=== PATIENT | female | born 1945 | race Caucasian/White ===

== ENCOUNTER 2018-07-12 10:24 | Emergency (ER) | payer MEDICARE, OTHER ==
[2018-07-12] MEDS: METHYLPREDNISOLONE 125 MG INJ IV (11:11)
[2018-07-12] MEDS: LEVALBUTEROL (NEB) 1.25 MG/0.5 ML AMP INH (12:25)
[2018-07-12 12:32] LABS: ADD MAN DIFF? NO
[2018-07-12 12:33] LABS: BASOPHILS % 0.5 % (0.0-2.0); EOSINOPHILS # 0.1 10^3/ul (0.0-0.5); EOSINOPHILS % 0.7 % (0.0-7.0); HEMATOCRIT 47.5 % (37.0-47.0); HEMOGLOBIN 15.6 g/dl (12.0-16.0); IMMATURE GRANS #M 0.02 10^3/ul; IMMATURE GRANS % (M) 0.3 %; LYMPHOCYTES # 1.8 10^3/ul (0.8-2.9); LYMPHOCYTES % 23.5 % (15.0-51.0); MEAN CORPUSCULAR HEMOGLOBIN 29.5 pg (29.0-33.0); MEAN CORPUSCULAR HGB CONC 32.8 g/dl (32.0-37.0); MEAN PLATELET VOLUME 10.3 fl (7.4-10.4); MONOCYTE # 0.5 10^3/ul (0.3-0.9); MONOCYTES % 6.4 % (0.0-11.0); NEUTROPHIL # 5.2 10^3/ul (1.6-7.5); NEUTROPHILS % 68.6 % (39.0-77.0); PLATELET COUNT 261 10^3/UL (140-415); RED BLOOD COUNT 5.28 10^6/ul (4.20-5.40); RED CELL DISTRIBUTION WIDTH 13.6 % (11.5-14.5)
[2018-07-12 12:33] LABS: WHITE BLOOD COUNT 7.5 10^3/ul (4.8-10.8)
[2018-07-12 13:01] LABS: ANION GAP 12 (8-16); BLOOD UREA NITROGEN 15 mg/dl (7-20); CALCIUM 10.5 mg/dl (8.4-10.2); CARBON DIOXIDE 22 mmol/L (21-31); CHLORIDE 109 mmol/L (97-110); CREATININE 0.61 mg/dl (0.44-1.00); GLUCOSE 88 mg/dl (70-220); POTASSIUM 4.1 mmol/L (3.5-5.1); SODIUM 139 mmol/L (135-144)
[2018-07-12 13:13] LABS: TROPONIN-I < 0.010 ng/ml (0.000-0.120)
== END 2018-07-12 14:20 | disposition home or self-care (01) ==
LOC: E/R 10:24
DX: I48.91 Unspecified atrial fibrillation (principal); J40 Bronchitis, not specified as acute or chronic; F17.210 Nicotine dependence, cigarettes, uncomplicated; R40.2142 Coma scale, eyes open, spontaneous, at arrival to emergency department; R40.2362 Coma scale, best motor response, obeys commands, at arrival to emergency department; R40.2252 Coma scale, best verbal response, oriented, at arrival to emergency department; Z79.82 Long term (current) use of aspirin
CPT/HCPCS: 36415; 71045; 80048; 84484; 85025; 93005; 94644; 99285-25

== ENCOUNTER 2018-07-29 16:22 | Emergency (ER) | payer MEDICARE, OTHER ==
[2018-07-29] MEDS: ONDANSETRON 4 MG INJ IV (16:50)
[2018-07-29] MEDS: LACTATED RINGER'S 1,000 ML IV (16:59)
[2018-07-29 17:01] LABS: ADD MAN DIFF? NO
[2018-07-29 17:06] LABS: WHITE BLOOD COUNT 7.7 10^3/ul (4.8-10.8)
[2018-07-29 17:06] LABS: BASOPHILS % 0.5 % (0.0-2.0); EOSINOPHILS # 0.1 10^3/ul (0.0-0.5); EOSINOPHILS % 1.6 % (0.0-7.0); HEMATOCRIT 45.6 % (37.0-47.0); HEMOGLOBIN 15.2 g/dl (12.0-16.0); LYMPHOCYTES # 2.2 10^3/ul (0.8-2.9); LYMPHOCYTES % 28.5 % (15.0-51.0); MEAN CORPUSCULAR HGB CONC 33.3 g/dl (32.0-37.0); MEAN CORPUSCULAR VOLUME 89.9 fl (82.0-101.0); MEAN PLATELET VOLUME 9.8 fl (7.4-10.4); MONOCYTE # 0.4 10^3/ul (0.3-0.9); MONOCYTES % 5.6 % (0.0-11.0); NEUTROPHIL # 4.9 10^3/ul (1.6-7.5); NEUTROPHILS % 63.5 % (39.0-77.0); PLATELET COUNT 322 10^3/UL (140-415); RED BLOOD COUNT 5.07 10^6/ul (4.20-5.40); RED CELL DISTRIBUTION WIDTH 13.1 % (11.5-14.5)
[2018-07-29 17:10] LABS: ADD UMIC YES; UR ASCORBIC ACID 20 mg/dL (NEGATIVE); UR BILIRUBIN (Dip) NEGATIVE (NEGATIVE); UR BLOOD (Dip) 1+ mg/dL (NEGATIVE); UR CLARITY CLEAR (CLEAR); UR COLOR YELLOW (YELLOW); UR GLUCOSE (Dip) NEGATIVE (NEGATIVE); UR KETONES (Dip) NEGATIVE (NEGATIVE); UR LEUKOCYTE ESTERASE (Dip) NEGATIVE Leu/ul (NEGATIVE); UR NITRITE (Dip) NEGATIVE (NEGATIVE); UR RBC 2 /HPF (0-5); UR SPECIFIC GRAVITY (Dip) 1.012 (1.003-1.030); UR SQUAMOUS EPITHELIAL CELL FEW /HPF (FEW); UR TOTAL PROTEIN (Dip) NEGATIVE (NEGATIVE); UR UROBILINOGEN (Dip) NEGATIVE (NEGATIVE); UR WBC 1 /HPF (0-5)
[2018-07-29 17:35] LABS: ALANINE AMINOTRANSFERASE 20 IU/L (13-69); ALBUMIN 3.9 g/dl (3.3-4.9); ALBUMIN/GLOBULIN RATIO 1.21; ALKALINE PHOSPHATASE 123 IU/L (42-121); ANION GAP 10 (8-16); ASPARTATE AMINO TRANSFERASE 22 IU/L (15-46); BILIRUBIN,INDIRECT 0.1 mg/dl (0-1.1); BILIRUBIN,TOTAL 0.1 mg/dl (0.2-1.3); BLOOD UREA NITROGEN 21 mg/dl (7-20); CALCIUM 10.3 mg/dl (8.4-10.2); CARBON DIOXIDE 23 mmol/L (21-31); CHLORIDE 110 mmol/L (97-110); CREATININE 0.69 mg/dl (0.44-1.00); GLUCOSE 102 mg/dl (70-220); POTASSIUM 4.1 mmol/L (3.5-5.1); SODIUM 139 mmol/L (135-144); TOTAL PROTEIN 7.1 g/dl (6.1-8.1)
[2018-07-29 17:46] LABS: TROPONIN-I < 0.012 ng/ml (0.000-0.120)
== END 2018-07-29 19:30 | disposition home or self-care (01) ==
LOC: E/R 16:22
DX: R53.1 Weakness (principal); F17.210 Nicotine dependence, cigarettes, uncomplicated; Z79.82 Long term (current) use of aspirin
CPT/HCPCS: 36415; 71045; 80053; 81001; 84484; 85025; 93005; 96374; 99285-25

== ENCOUNTER 2018-08-19 21:15 | Inpatient (IN) | payer MEDICARE, OTHER ==
[2018-08-19 22:03] LABS: ADD MAN DIFF? NO
[2018-08-19 22:05] LABS: WHITE BLOOD COUNT 8.7 10^3/ul (4.8-10.8)
[2018-08-19 22:05] LABS: BASOPHILS % 0.3 % (0.0-2.0); EOSINOPHILS # 0.2 10^3/ul (0.0-0.5); EOSINOPHILS % 1.8 % (0.0-7.0); HEMATOCRIT 45.6 % (37.0-47.0); LYMPHOCYTES # 2.1 10^3/ul (0.8-2.9); LYMPHOCYTES % 24.6 % (15.0-51.0); MEAN CORPUSCULAR HEMOGLOBIN 29.5 pg (29.0-33.0); MEAN CORPUSCULAR HGB CONC 32.9 g/dl (32.0-37.0); MEAN CORPUSCULAR VOLUME 89.6 fl (82.0-101.0); MEAN PLATELET VOLUME 10.1 fl (7.4-10.4); MONOCYTE # 0.5 10^3/ul (0.3-0.9); MONOCYTES % 5.3 % (0.0-11.0); NEUTROPHIL # 5.9 10^3/ul (1.6-7.5); NEUTROPHILS % 67.8 % (39.0-77.0); PLATELET COUNT 272 10^3/UL (140-415); RED BLOOD COUNT 5.09 10^6/ul (4.20-5.40); RED CELL DISTRIBUTION WIDTH 13.1 % (11.5-14.5)
[2018-08-19] MEDS: SOD CHLORIDE 0.9% 500 ML IV (22:11)
[2018-08-19] MEDS: ASPIRIN 325 MG TAB PO (22:13)
[2018-08-19] MEDS: DILTIAZEM 25 MG INJ IV (22:13)
[2018-08-19 22:24] LABS: INR 0.84; PROTIME 11.6 Sec (11.9-14.9); PT RATIO 0.9
[2018-08-19 22:25] LABS: PARTIAL THROMBOPLASTIN TIME 28.6 Sec (25.0-35.0)
[2018-08-19 22:29] LABS: ANION GAP 10 (8-16); BLOOD UREA NITROGEN 20 mg/dl (7-20); CALCIUM 10.3 mg/dl (8.4-10.2); CARBON DIOXIDE 24 mmol/L (21-31); CHLORIDE 111 mmol/L (97-110); CREATININE 0.63 mg/dl (0.44-1.00); GLUCOSE 167 mg/dl (70-220); POTASSIUM 3.5 mmol/L (3.5-5.1); SODIUM 141 mmol/L (135-144)
[2018-08-19 22:41] LABS: B-TYPE NATRIURETIC PEPTIDE 256 PG/ML (0-125); TROPONIN-I < 0.012 ng/ml (0.000-0.120)
[2018-08-20] MEDS ORDERED: NITROGLYCERIN (SL) 0.4 MG TAB SL
[2018-08-20] MEDS ORDERED: ONDANSETRON 4 MG INJ IV
[2018-08-20] MEDS ORDERED: DOCUSATE SODIUM 100 MG CAP PO
[2018-08-20] MEDS ORDERED: ACETAMINOPHEN 325 MG TAB PO
[2018-08-20] MEDS ORDERED: BISACODYL (EC) 5 MG TAB PO
[2018-08-20] MEDS ORDERED: NACL 0.9% 3 ML SYG IV
[2018-08-20 03:49] LABS: ADD MAN DIFF? NO
[2018-08-20 04:04] LABS: BASOPHILS % 0.5 % (0.0-2.0); EOSINOPHILS # 0.1 10^3/ul (0.0-0.5); EOSINOPHILS % 1.6 % (0.0-7.0); HEMATOCRIT 42.1 % (37.0-47.0); HEMOGLOBIN 13.7 g/dl (12.0-16.0); LYMPHOCYTES # 2.1 10^3/ul (0.8-2.9); LYMPHOCYTES % 27.1 % (15.0-51.0); MEAN CORPUSCULAR HEMOGLOBIN 29.5 pg (29.0-33.0); MEAN CORPUSCULAR HGB CONC 32.5 g/dl (32.0-37.0); MEAN CORPUSCULAR VOLUME 90.5 fl (82.0-101.0); MEAN PLATELET VOLUME 10.3 fl (7.4-10.4); MONOCYTE # 0.4 10^3/ul (0.3-0.9); MONOCYTES % 5.4 % (0.0-11.0); NEUTROPHIL # 5.1 10^3/ul (1.6-7.5); NEUTROPHILS % 65.1 % (39.0-77.0); PLATELET COUNT 249 10^3/UL (140-415); RED BLOOD COUNT 4.65 10^6/ul (4.20-5.40); RED CELL DISTRIBUTION WIDTH 13.3 % (11.5-14.5)
[2018-08-20 04:04] LABS: WHITE BLOOD COUNT 7.9 10^3/ul (4.8-10.8)
[2018-08-20 04:09] LABS: ALANINE AMINOTRANSFERASE 20 IU/L (13-69); ALBUMIN 2.9 g/dl (3.3-4.9); ALBUMIN/GLOBULIN RATIO 1.16; ALKALINE PHOSPHATASE 98 IU/L (42-121); ANION GAP 6 (8-16); ASPARTATE AMINO TRANSFERASE 13 IU/L (15-46); BILIRUBIN,INDIRECT 0.2 mg/dl (0-1.1); BILIRUBIN,TOTAL 0.2 mg/dl (0.2-1.3); BLOOD UREA NITROGEN 17 mg/dl (7-20); CALCIUM 9.6 mg/dl (8.4-10.2); CARBON DIOXIDE 24 mmol/L (21-31); CHLORIDE 116 mmol/L (97-110); CHOL/HDL RATIO 2.9 RATIO; CHOLESTEROL 181 mg/dl (100-200); CREATINE KINASE 27 IU/L (23-200); CREATININE 0.63 mg/dl (0.44-1.00); GLUCOSE 163 mg/dl (70-220); HDL CHOLESTEROL 62 mg/dl (33-92); LDL CHOLESTEROL,CALCULATED 111 mg/dl; MAGNESIUM 1.8 mg/dl (1.7-2.5); POTASSIUM 3.4 mmol/L (3.5-5.1); SODIUM 143 mmol/L (135-144); TOTAL PROTEIN 5.4 g/dl (6.1-8.1); TRIGLYCERIDES 42 mg/dl (0-149)
[2018-08-20 04:16] LABS: HEMOGLOBIN A1C 6.2 % (0-5.9)
[2018-08-20 04:21] LABS: CK INDEX 2.4; CK-MB 0.65 ng/ml (0.0-2.4); TROPONIN-I 0.013 ng/ml (0.000-0.120)
[2018-08-20] MEDS: MAGNESIUM SULFATE 2 GM/50 ML 50 ML IVPB (04:40)
[2018-08-20] MEDS: POTASSIUM CHLORIDE (SR) 20 MEQ TAB PO (04:40)
[2018-08-20] MEDS ORDERED: FLECAINIDE 50 MG TAB PO (05:00)
[2018-08-20] MEDS: ASPIRIN (EC) 81 MG TAB PO (08:13)
[2018-08-20] MEDS: FLECAINIDE 50 MG TAB PO ×2 (08:20→21:00)
[2018-08-20] MEDS ORDERED: DILTIAZEM (CD) 240 MG CAP PO (09:00)
[2018-08-20 11:43] LABS: CREATINE KINASE 23 IU/L (23-200)
[2018-08-20 11:54] LABS: CK-MB 0.45 ng/ml (0.0-2.4); TROPONIN-I < 0.012 ng/ml (0.000-0.120)
[2018-08-21] MEDS: FLECAINIDE 50 MG TAB PO ×2 (09:00→21:00)
[2018-08-21] MEDS: ASPIRIN (EC) 81 MG TAB PO (09:14)
[2018-08-21 09:47] LABS: INR 0.86; PROTIME 11.8 Sec (11.9-14.9); PT RATIO 0.9
[2018-08-21 10:32] LABS: TROPONIN-I < 0.012 ng/ml (0.000-0.120)
[2018-08-21 10:36] LABS: ANION GAP 13 (8-16); BLOOD UREA NITROGEN 18 mg/dl (7-20); CALCIUM 10.4 mg/dl (8.4-10.2); CARBON DIOXIDE 23 mmol/L (21-31); CHLORIDE 110 mmol/L (97-110); CREATININE 0.55 mg/dl (0.44-1.00); GLUCOSE 92 mg/dl (70-220); MAGNESIUM 2.1 mg/dl (1.7-2.5); POTASSIUM 4.8 mmol/L (3.5-5.1); SODIUM 141 mmol/L (135-144)
[2018-08-21 15:08] LABS: ADD MAN DIFF? NO
[2018-08-21 15:10] LABS: BASOPHILS % 0.5 % (0.0-2.0); EOSINOPHILS # 0.1 10^3/ul (0.0-0.5); EOSINOPHILS % 1.9 % (0.0-7.0); HEMATOCRIT 48.9 % (37.0-47.0); HEMOGLOBIN 16.2 g/dl (12.0-16.0); LYMPHOCYTES # 1.9 10^3/ul (0.8-2.9); LYMPHOCYTES % 31.6 % (15.0-51.0); MEAN CORPUSCULAR HEMOGLOBIN 29.8 pg (29.0-33.0); MEAN CORPUSCULAR HGB CONC 33.1 g/dl (32.0-37.0); MEAN CORPUSCULAR VOLUME 89.9 fl (82.0-101.0); MEAN PLATELET VOLUME 10.6 fl (7.4-10.4); MONOCYTE # 0.4 10^3/ul (0.3-0.9); MONOCYTES % 6.3 % (0.0-11.0); NEUTROPHIL # 3.5 10^3/ul (1.6-7.5); NEUTROPHILS % 59.4 % (39.0-77.0); PLATELET COUNT 248 10^3/UL (140-415); RED BLOOD COUNT 5.44 10^6/ul (4.20-5.40); RED CELL DISTRIBUTION WIDTH 13.2 % (11.5-14.5)
[2018-08-21 15:10] LABS: WHITE BLOOD COUNT 5.9 10^3/ul (4.8-10.8)
[2018-08-22 07:32] LABS: ANION GAP 10 (8-16); BLOOD UREA NITROGEN 21 mg/dl (7-20); CALCIUM 10.3 mg/dl (8.4-10.2); CARBON DIOXIDE 27 mmol/L (21-31); CHLORIDE 108 mmol/L (97-110); CREATININE 0.62 mg/dl (0.44-1.00); GLUCOSE 110 mg/dl (70-220); MAGNESIUM 2.1 mg/dl (1.7-2.5); PHOSPHORUS 3.8 mg/dl (2.5-4.9); POTASSIUM 4.4 mmol/L (3.5-5.1); SODIUM 141 mmol/L (135-144)
[2018-08-22] MEDS: ASPIRIN (EC) 81 MG TAB PO (08:18)
[2018-08-22] MEDS: FLECAINIDE 50 MG TAB PO (08:19)
[2018-08-22] MEDS ORDERED: METOPROLOL (XL) 25 MG TAB PO (12:00)
[2018-08-22] MEDS: ATENOLOL 25 MG TAB PO (12:43)
[2018-08-22] MEDS: FLECAINIDE 100 MG TAB PO ×2 (14:06→20:38)
[2018-08-23] MEDS: ATENOLOL 25 MG TAB PO (08:59)
[2018-08-23] MEDS: FLECAINIDE 100 MG TAB PO (08:59)
[2018-08-23] MEDS: ASPIRIN (EC) 325 MG TAB PO (08:59)
== END 2018-08-23 11:45 | disposition home or self-care (01) | DRG 310 ==
LOC: TEL 22:46 → E/R 21:15
DX: I48.0 Paroxysmal atrial fibrillation (principal); F41.9 Anxiety disorder, unspecified; Z79.82 Long term (current) use of aspirin; Z90.710 Acquired absence of both cervix and uterus; Z87.891 Personal history of nicotine dependence
CPT/HCPCS: 36415; 71045; 80048; 80053; 80061; 82550; 82553; 83036; 83735; 83880; 84100; 84443; 84484; 85025; 85610; 85730; 93005; 93306; 96360; 99285-25

== ENCOUNTER 2018-09-04 16:41 | Inpatient (IN) | payer MEDICARE, OTHER ==
[2018-09-04 17:53] LABS: ADD MAN DIFF? NO
[2018-09-04] MEDS: DILTIAZEM 25 MG INJ IV (18:02)
[2018-09-04 18:06] LABS: BASOPHILS % 0.5 % (0.0-2.0); EOSINOPHILS # 0.1 10^3/ul (0.0-0.5); EOSINOPHILS % 1.5 % (0.0-7.0); HEMOGLOBIN 15.1 g/dl (12.0-16.0); LYMPHOCYTES % 25.3 % (15.0-51.0); MEAN CORPUSCULAR HEMOGLOBIN 29.3 pg (29.0-33.0); MEAN CORPUSCULAR HGB CONC 32.8 g/dl (32.0-37.0); MEAN CORPUSCULAR VOLUME 89.1 fl (82.0-101.0); MEAN PLATELET VOLUME 10.4 fl (7.4-10.4); MONOCYTE # 0.5 10^3/ul (0.3-0.9); MONOCYTES % 5.7 % (0.0-11.0); NEUTROPHIL # 5.3 10^3/ul (1.6-7.5); NEUTROPHILS % 66.7 % (39.0-77.0); PLATELET COUNT 311 10^3/UL (140-415); RED BLOOD COUNT 5.16 10^6/ul (4.20-5.40); RED CELL DISTRIBUTION WIDTH 13.5 % (11.5-14.5)
[2018-09-04 18:06] LABS: WHITE BLOOD COUNT 7.9 10^3/ul (4.8-10.8)
[2018-09-04] MEDS: DILTIAZEM-D5W 125MG/125ML DRIP 125 ML IV (18:24)
[2018-09-04] MEDS: SOD CHLORIDE 0.9% 1,000 ML IV ×2 (18:24→21:49)
[2018-09-04 18:26] LABS: INR 0.83; PROTIME 11.5 Sec (11.9-14.9); PT RATIO 0.9
[2018-09-04 18:27] LABS: PARTIAL THROMBOPLASTIN TIME 29.7 Sec (23.0-35.0)
[2018-09-04 18:32] LABS: ALANINE AMINOTRANSFERASE 29 IU/L (13-69); ALBUMIN 3.7 g/dl (3.3-4.9); ALBUMIN/GLOBULIN RATIO 1.08; ALKALINE PHOSPHATASE 145 IU/L (42-121); ANION GAP 13 (8-16); ASPARTATE AMINO TRANSFERASE 22 IU/L (15-46); BILIRUBIN,INDIRECT 0.3 mg/dl (0-1.1); BILIRUBIN,TOTAL 0.3 mg/dl (0.2-1.3); BLOOD UREA NITROGEN 19 mg/dl (7-20); CALCIUM 10.9 mg/dl (8.4-10.2); CARBON DIOXIDE 24 mmol/L (21-31); CHLORIDE 108 mmol/L (97-110); CREATININE 0.64 mg/dl (0.44-1.00); GLUCOSE 131 mg/dl (70-220); POTASSIUM 3.6 mmol/L (3.5-5.1); SODIUM 141 mmol/L (135-144); TOTAL PROTEIN 7.1 g/dl (6.1-8.1)
[2018-09-04 18:44] LABS: TROPONIN-I < 0.012 ng/ml (0.000-0.120)
[2018-09-04] MEDS: MAGNESIUM SULFATE 2 GM/50 ML 50 ML IVPB (18:48)
[2018-09-04] MEDS ORDERED: ONDANSETRON 4 MG INJ IV ×2 (20:00→21:00)
[2018-09-04] MEDS ORDERED: ACETAMINOPHEN 325 MG TAB PO (21:00)
[2018-09-04] MEDS ORDERED: BISACODYL (EC) 5 MG TAB PO (21:00)
[2018-09-04] MEDS ORDERED: NACL 0.9% 3 ML SYG IV (21:00)
[2018-09-04] MEDS ORDERED: DOCUSATE SODIUM 100 MG CAP PO (21:00)
[2018-09-04] MEDS: FLECAINIDE 100 MG TAB PO (22:40)
[2018-09-05 06:13] LABS: ADD MAN DIFF? NO
[2018-09-05 06:20] LABS: WHITE BLOOD COUNT 6.9 10^3/ul (4.8-10.8)
[2018-09-05 06:20] LABS: BASOPHILS % 0.6 % (0.0-2.0); EOSINOPHILS # 0.1 10^3/ul (0.0-0.5); EOSINOPHILS % 1.9 % (0.0-7.0); HEMATOCRIT 47.1 % (37.0-47.0); HEMOGLOBIN 15.3 g/dl (12.0-16.0); LYMPHOCYTES # 2.5 10^3/ul (0.8-2.9); LYMPHOCYTES % 35.7 % (15.0-51.0); MEAN CORPUSCULAR HGB CONC 32.5 g/dl (32.0-37.0); MEAN CORPUSCULAR VOLUME 89.4 fl (82.0-101.0); MEAN PLATELET VOLUME 10.3 fl (7.4-10.4); MONOCYTE # 0.5 10^3/ul (0.3-0.9); MONOCYTES % 6.7 % (0.0-11.0); NEUTROPHIL # 3.8 10^3/ul (1.6-7.5); PLATELET COUNT 286 10^3/UL (140-415); RED BLOOD COUNT 5.27 10^6/ul (4.20-5.40); RED CELL DISTRIBUTION WIDTH 13.7 % (11.5-14.5)
[2018-09-05 06:51] LABS: ALANINE AMINOTRANSFERASE 21 IU/L (13-69); ALBUMIN 3.1 g/dl (3.3-4.9); ALBUMIN/GLOBULIN RATIO 1.06; ALKALINE PHOSPHATASE 107 IU/L (42-121); ANION GAP 12 (8-16); ASPARTATE AMINO TRANSFERASE 19 IU/L (15-46); BILIRUBIN,INDIRECT 0.5 mg/dl (0-1.1); BILIRUBIN,TOTAL 0.5 mg/dl (0.2-1.3); BLOOD UREA NITROGEN 16 mg/dl (7-20); CALCIUM 9.9 mg/dl (8.4-10.2); CARBON DIOXIDE 24 mmol/L (21-31); CHLORIDE 110 mmol/L (97-110); CREATININE 0.56 mg/dl (0.44-1.00); GLUCOSE 124 mg/dl (70-220); SODIUM 142 mmol/L (135-144)
[2018-09-05] MEDS: DILTIAZEM (CD) 120 MG CAP PO ×3 (08:06→20:53)
[2018-09-05] MEDS: ASPIRIN 81 MG TAB PO (08:06)
[2018-09-05] MEDS: FLECAINIDE 100 MG TAB PO ×3 (08:06→20:53)
[2018-09-05] MEDS: DILTIAZEM 25 MG INJ IV (12:33)
[2018-09-05] MEDS: SOD CHLORIDE 0.9% 500 ML IV (12:33)
[2018-09-05] MEDS: ENOXAPARIN 100 MG/ML SYG SC (21:00)
[2018-09-06 07:50] LABS: ANION GAP 11 (8-16); BLOOD UREA NITROGEN 18 mg/dl (7-20); CALCIUM 10.1 mg/dl (8.4-10.2); CARBON DIOXIDE 25 mmol/L (21-31); CHLORIDE 111 mmol/L (97-110); CREATININE 0.65 mg/dl (0.44-1.00); GLUCOSE 125 mg/dl (70-220); POTASSIUM 4.3 mmol/L (3.5-5.1); SODIUM 143 mmol/L (135-144)
[2018-09-06] MEDS: ASPIRIN (EC) 325 MG TAB PO ×2 (08:24→08:32)
[2018-09-06] MEDS: FLECAINIDE 100 MG TAB PO ×2 (08:25→21:04)
[2018-09-06] MEDS: DILTIAZEM (CD) 120 MG CAP PO ×2 (08:26→21:03)
[2018-09-06] MEDS: ENOXAPARIN 100 MG/ML SYG SC ×2 (08:26→22:11)
[2018-09-06] MEDS: ASPIRIN (EC) 81 MG TAB PO (10:08)
[2018-09-06] MEDS ORDERED: LABETALOL HCL 20MG INJ IV (17:00)
[2018-09-06] MEDS: SOD CHLORIDE 0.45% 1,000 ML IV (17:41)
[2018-09-06] MEDS: ATORVASTATIN 40 MG TAB PO (21:00)
[2018-09-07] MEDS: ASPIRIN (EC) 81 MG TAB PO (10:16)
[2018-09-07] MEDS: FLECAINIDE 100 MG TAB PO (10:18)
[2018-09-07] MEDS: DILTIAZEM (CD) 120 MG CAP PO (10:21)
[2018-09-07] MEDS: ENOXAPARIN 100 MG/ML SYG SC (10:31)
[2018-09-07] MEDS: SOD CHLORIDE 0.45% 1,000 ML IV (13:00)
[2018-09-08] MEDS ORDERED: APIXABAN 5 MG TABLET PO (09:00)
== END 2018-09-07 19:27 | disposition home or self-care (01) | DRG 309 ==
LOC: E/R 16:41 → TEL 20:23
DX: I48.0 Paroxysmal atrial fibrillation (principal); G45.9 Transient cerebral ischemic attack, unspecified; F41.9 Anxiety disorder, unspecified; Z91.19 Patient's noncompliance with other medical treatment and regimen
CPT/HCPCS: 36415; 70450; 71045; 80048; 80053; 83735; 84484; 85025; 85610; 85730; 87081; 93005; 93306; 93880; 96365; 96366; 96375; 99291-25

== ENCOUNTER 2018-09-08 14:39 | Emergency (ER) | payer MEDICARE, OTHER ==
[2018-09-08 18:21] LABS: ADD MAN DIFF? NO
[2018-09-08 18:23] LABS: WHITE BLOOD COUNT 7.9 10^3/ul (4.8-10.8)
[2018-09-08 18:23] LABS: BASOPHILS % 0.5 % (0.0-2.0); EOSINOPHILS # 0.1 10^3/ul (0.0-0.5); EOSINOPHILS % 0.8 % (0.0-7.0); HEMATOCRIT 43.1 % (37.0-47.0); LYMPHOCYTES # 1.7 10^3/ul (0.8-2.9); LYMPHOCYTES % 21.5 % (15.0-51.0); MEAN CORPUSCULAR HEMOGLOBIN 29.5 pg (29.0-33.0); MEAN CORPUSCULAR HGB CONC 32.5 g/dl (32.0-37.0); MEAN CORPUSCULAR VOLUME 90.7 fl (82.0-101.0); MEAN PLATELET VOLUME 9.9 fl (7.4-10.4); MONOCYTE # 0.4 10^3/ul (0.3-0.9); MONOCYTES % 4.9 % (0.0-11.0); NEUTROPHIL # 5.7 10^3/ul (1.6-7.5); PLATELET COUNT 266 10^3/UL (140-415); RED BLOOD COUNT 4.75 10^6/ul (4.20-5.40); RED CELL DISTRIBUTION WIDTH 13.5 % (11.5-14.5)
[2018-09-08 18:38] LABS: PROTIME 13.3 Sec (11.9-14.9)
[2018-09-08 18:39] LABS: PARTIAL THROMBOPLASTIN TIME 30.5 Sec (23.0-35.0)
[2018-09-08 18:46] LABS: ANION GAP 10 (8-16); BLOOD UREA NITROGEN 27 mg/dl (7-20); CALCIUM 10.6 mg/dl (8.4-10.2); CARBON DIOXIDE 26 mmol/L (21-31); CHLORIDE 108 mmol/L (97-110); CREATININE 0.86 mg/dl (0.44-1.00); GLUCOSE 93 mg/dl (70-220); POTASSIUM 4.7 mmol/L (3.5-5.1); SODIUM 139 mmol/L (135-144)
[2018-09-08 19:00] LABS: TROPONIN-I < 0.012 ng/ml (0.000-0.120)
== END 2018-09-08 19:36 | disposition home or self-care (01) ==
LOC: E/R 14:39
DX: E86.0 Dehydration (principal); I10 Essential (primary) hypertension; I48.91 Unspecified atrial fibrillation; Z79.01 Long term (current) use of anticoagulants; Z87.891 Personal history of nicotine dependence
CPT/HCPCS: 36415; 80048; 84484; 85025; 85610; 85730; 93005; 99284-25

== ENCOUNTER 2018-10-20 18:52 | Emergency (ER) | payer MEDICARE, OTHER ==
[2018-10-20] MEDS: DEXAMETHASONE 10 MG/ML 1 ML INJ IM (22:03)
== END 2018-10-20 22:10 | disposition home or self-care (01) ==
LOC: E/R 18:52
DX: I48.91 Unspecified atrial fibrillation (principal); R06.2 Wheezing; Z87.891 Personal history of nicotine dependence
CPT/HCPCS: 71045; 93005; 96372; 99284-25

== ENCOUNTER 2018-10-28 21:09 | Emergency (ER) | payer MEDICARE, OTHER | END 2018-10-28 22:23 | disposition home or self-care (01) | LOC: FTE 21:09 | DX: M79.605 Pain in left leg (principal); F17.210 Nicotine dependence, cigarettes, uncomplicated | CPT/HCPCS: 99283 ==

== ENCOUNTER 2018-11-15 19:42 | Emergency (ER) | payer MEDICARE, OTHER ==
[2018-11-15] MEDS: MAGNESIUM SULFATE 2 GM/50 ML 50 ML IVPB (21:09)
[2018-11-15] MEDS: SOD CHLORIDE 0.9% 1,000 ML IV (21:09)
[2018-11-15 21:28] LABS: ADD MAN DIFF? NO
[2018-11-15 21:29] LABS: WHITE BLOOD COUNT 7.3 10^3/ul (4.8-10.8)
[2018-11-15 21:29] LABS: BASOPHILS % 0.5 % (0.0-2.0); EOSINOPHILS # 0.1 10^3/ul (0.0-0.5); EOSINOPHILS % 1.5 % (0.0-7.0); HEMATOCRIT 44.1 % (37.0-47.0); HEMOGLOBIN 14.7 g/dl (12.0-16.0); LYMPHOCYTES % 27.1 % (15.0-51.0); MEAN CORPUSCULAR HEMOGLOBIN 29.8 pg (29.0-33.0); MEAN CORPUSCULAR HGB CONC 33.3 g/dl (32.0-37.0); MEAN CORPUSCULAR VOLUME 89.5 fl (82.0-101.0); MEAN PLATELET VOLUME 9.6 fl (7.4-10.4); MONOCYTE # 0.5 10^3/ul (0.3-0.9); MONOCYTES % 7.4 % (0.0-11.0); NEUTROPHIL # 4.6 10^3/ul (1.6-7.5); NEUTROPHILS % 63.2 % (39.0-77.0); PLATELET COUNT 290 10^3/UL (140-415); RED BLOOD COUNT 4.93 10^6/ul (4.20-5.40); RED CELL DISTRIBUTION WIDTH 12.8 % (11.5-14.5)
[2018-11-15 21:46] LABS: ANION GAP 6 (5-13); BLOOD UREA NITROGEN 16 mg/dl (7-20); CALCIUM 10.4 mg/dl (8.4-10.2); CARBON DIOXIDE 24 mmol/L (21-31); CHLORIDE 109 mmol/L (97-110); CREATININE 0.58 mg/dl (0.44-1.00); Estimated GFR > 60 mL/min (>60); GLUCOSE 135 mg/dl (70-220); POTASSIUM 3.8 mmol/L (3.5-5.1); SODIUM 139 mmol/L (135-144)
[2018-11-15 21:57] LABS: TROPONIN-I < 0.012 ng/ml (0.000-0.120)
== END 2018-11-15 22:00 | disposition home or self-care (01) ==
LOC: E/R 22:00
DX: I48.0 Paroxysmal atrial fibrillation (principal); Z87.891 Personal history of nicotine dependence; Z79.01 Long term (current) use of anticoagulants
CPT/HCPCS: 36415; 71045; 80048; 84484; 85025; 93005; 96374; 99285-25

== ENCOUNTER 2018-11-30 19:55 | Emergency (ER) | payer MEDICARE, OTHER ==
[2018-11-30] MEDS: LEVALBUTEROL (NEB) 1.25 MG/0.5 ML AMP HHN (20:34)
[2018-11-30] MEDS: IPRATROPIUM (NEB) 0.5 MG/2.5 ML AMP HHN (20:34)
== END 2018-11-30 22:26 | disposition home or self-care (01) ==
LOC: FTE 19:55
DX: R05 Cough (principal); F17.210 Nicotine dependence, cigarettes, uncomplicated
CPT/HCPCS: 71045; 94664; 99283-25

== ENCOUNTER 2018-12-01 13:56 | Emergency (ER) | payer MEDICARE, OTHER ==
[2018-12-01] MEDS: SOD CHLORIDE 0.9% 1,000 ML IV (15:33)
[2018-12-01] MEDS: MAGNESIUM SULFATE 1 GM/D5W 100 ML IVPB (15:33)
[2018-12-01 16:05] LABS: ADD MAN DIFF? NO
[2018-12-01 16:19] LABS: BASOPHIL # 0.1 10^3/ul (0.0-0.1); BASOPHILS % 0.6 % (0.0-2.0); EOSINOPHILS # 0.1 10^3/ul (0.0-0.5); EOSINOPHILS % 0.9 % (0.0-7.0); HEMOGLOBIN 15.5 g/dl (12.0-16.0); LYMPHOCYTES # 1.9 10^3/ul (0.8-2.9); MEAN CORPUSCULAR VOLUME 87.9 fl (82.0-101.0); MEAN PLATELET VOLUME 10.2 fl (7.4-10.4); MONOCYTE # 0.6 10^3/ul (0.3-0.9); MONOCYTES % 6.6 % (0.0-11.0); NEUTROPHIL # 5.9 10^3/ul (1.6-7.5); NEUTROPHILS % 69.7 % (39.0-77.0); PLATELET COUNT 335 10^3/UL (140-415); RED BLOOD COUNT 5.35 10^6/ul (4.20-5.40)
[2018-12-01 16:19] LABS: WHITE BLOOD COUNT 8.5 10^3/ul (4.8-10.8)
[2018-12-01 16:37] LABS: ALANINE AMINOTRANSFERASE 25 IU/L (13-69); ALBUMIN 3.6 g/dl (3.3-4.9); ALBUMIN/GLOBULIN RATIO 1.28; ALKALINE PHOSPHATASE 100 IU/L (42-121); ANION GAP 8 (5-13); ASPARTATE AMINO TRANSFERASE 21 IU/L (15-46); BILIRUBIN,INDIRECT 0.1 mg/dl (0-1.1); BILIRUBIN,TOTAL 0.1 mg/dl (0.2-1.3); BLOOD UREA NITROGEN 16 mg/dl (7-20); CALCIUM 10.5 mg/dl (8.4-10.2); CARBON DIOXIDE 25 mmol/L (21-31); CHLORIDE 110 mmol/L (97-110); CREATININE 0.63 mg/dl (0.44-1.00); Estimated GFR > 60 mL/min (>60); GLUCOSE 109 mg/dl (70-220); LIPASE 25 U/L (23-300); POTASSIUM 3.8 mmol/L (3.5-5.1); SODIUM 143 mmol/L (135-144); TOTAL PROTEIN 6.4 g/dl (6.1-8.1)
[2018-12-01 16:46] LABS: TROPONIN-I < 0.012 ng/ml (0.000-0.120)
== END 2018-12-01 18:34 | disposition home or self-care (01) ==
LOC: E/R 13:56
DX: E86.0 Dehydration (principal); T43.3X5A Adverse effect of phenothiazine antipsychotics and neuroleptics, initial encounter; I48.0 Paroxysmal atrial fibrillation; I10 Essential (primary) hypertension; Z87.891 Personal history of nicotine dependence
CPT/HCPCS: 36415; 80053; 83690; 84484; 85025; 93005; 96374; 99284-25

== ENCOUNTER 2018-12-03 15:07 | Emergency (ER) | payer MEDICARE, OTHER ==
[2018-12-03 16:08] LABS: ADD MAN DIFF? NO
[2018-12-03 16:17] LABS: WHITE BLOOD COUNT 9.4 10^3/ul (4.8-10.8)
[2018-12-03 16:17] LABS: BASOPHIL # 0.1 10^3/ul (0.0-0.1); BASOPHILS % 0.5 % (0.0-2.0); EOSINOPHILS # 0.1 10^3/ul (0.0-0.5); EOSINOPHILS % 1.4 % (0.0-7.0); HEMATOCRIT 45.7 % (37.0-47.0); HEMOGLOBIN 15.1 g/dl (12.0-16.0); LYMPHOCYTES # 1.9 10^3/ul (0.8-2.9); LYMPHOCYTES % 20.4 % (15.0-51.0); MEAN CORPUSCULAR HEMOGLOBIN 29.6 pg (29.0-33.0); MEAN CORPUSCULAR VOLUME 89.6 fl (82.0-101.0); MEAN PLATELET VOLUME 9.9 fl (7.4-10.4); MONOCYTE # 0.4 10^3/ul (0.3-0.9); MONOCYTES % 4.4 % (0.0-11.0); NEUTROPHIL # 6.9 10^3/ul (1.6-7.5); PLATELET COUNT 343 10^3/UL (140-415); RED CELL DISTRIBUTION WIDTH 12.7 % (11.5-14.5)
[2018-12-03 16:36] LABS: ANION GAP 7 (5-13); BLOOD UREA NITROGEN 18 mg/dl (7-20); CALCIUM 10.9 mg/dl (8.4-10.2); CARBON DIOXIDE 28 mmol/L (21-31); CHLORIDE 108 mmol/L (97-110); CREATININE 0.73 mg/dl (0.44-1.00); Estimated GFR > 60 mL/min (>60); GLUCOSE 143 mg/dl (70-220); POTASSIUM 3.9 mmol/L (3.5-5.1); SODIUM 143 mmol/L (135-144)
[2018-12-03 16:48] LABS: TROPONIN-I < 0.012 ng/ml (0.000-0.120)
[2018-12-03] MEDS: DILTIAZEM 30 MG TAB PO (17:03)
[2018-12-03] MEDS: DILTIAZEM 25 MG INJ IV (18:42)
[2018-12-03] MEDS: SOD CHLORIDE 0.9% 500 ML IV (18:43)
== END 2018-12-03 19:58 | disposition home or self-care (01) ==
LOC: E/R 15:07
DX: I48.91 Unspecified atrial fibrillation (principal); E83.52 Hypercalcemia; Z79.01 Long term (current) use of anticoagulants; Z87.891 Personal history of nicotine dependence
CPT/HCPCS: 36415; 71045; 80048; 84484; 85025; 93005; 96374; 99291-25

== ENCOUNTER 2019-01-15 07:15 | Inpatient (IN) | payer MEDICARE, OTHER ==
[2019-01-15] MEDS ORDERED: ASPIRIN 325 MG TAB PO (07:23)
[2019-01-15] MEDS ORDERED: NITROGLYCERIN (SL) 0.4 MG TAB SL ×2 (07:30→12:00)
[2019-01-15] MEDS: DILTIAZEM 25 MG INJ IV (08:18)
[2019-01-15 08:27] LABS: ADD MAN DIFF? NO
[2019-01-15 08:33] LABS: BASOPHILS % 0.7 % (0.0-2.0); EOSINOPHILS # 0.1 10^3/ul (0.0-0.5); EOSINOPHILS % 1.3 % (0.0-7.0); HEMATOCRIT 53.7 % (37.0-47.0); HEMOGLOBIN 17.7 g/dl (12.0-16.0); LYMPHOCYTES # 1.5 10^3/ul (0.8-2.9); LYMPHOCYTES % 24.4 % (15.0-51.0); MEAN CORPUSCULAR HEMOGLOBIN 28.9 pg (29.0-33.0); MEAN CORPUSCULAR VOLUME 87.7 fl (82.0-101.0); MEAN PLATELET VOLUME 9.7 fl (7.4-10.4); MONOCYTE # 0.3 10^3/ul (0.3-0.9); MONOCYTES % 4.7 % (0.0-11.0); NEUTROPHIL # 4.1 10^3/ul (1.6-7.5); NEUTROPHILS % 68.6 % (39.0-77.0); PLATELET COUNT 335 10^3/UL (140-415); RED BLOOD COUNT 6.12 10^6/ul (4.20-5.40); RED CELL DISTRIBUTION WIDTH 13.1 % (11.5-14.5)
[2019-01-15 08:49] LABS: ALANINE AMINOTRANSFERASE 16 IU/L (13-69); ALBUMIN 4.6 g/dl (3.3-4.9); ALBUMIN/GLOBULIN RATIO 1.21; ALKALINE PHOSPHATASE 125 IU/L (42-121); ANION GAP 11 (5-13); ASPARTATE AMINO TRANSFERASE 24 IU/L (15-46); BILIRUBIN,INDIRECT 0.4 mg/dl (0-1.1); BILIRUBIN,TOTAL 0.4 mg/dl (0.2-1.3); BLOOD UREA NITROGEN 15 mg/dl (7-20); CALCIUM 10.8 mg/dl (8.4-10.2); CARBON DIOXIDE 26 mmol/L (21-31); CHLORIDE 104 mmol/L (97-110); CREATINE KINASE 35 IU/L (23-200); CREATININE 0.65 mg/dl (0.44-1.00); GLUCOSE 131 mg/dl (70-220); SODIUM 141 mmol/L (135-144); TOTAL PROTEIN 8.4 g/dl (6.1-8.1)
[2019-01-15 09:00] LABS: B-TYPE NATRIURETIC PEPTIDE 265 PG/ML (0-125); CK INDEX 1.7; CK-MB 0.59 ng/ml (0.0-2.4); TROPONIN-I < 0.012 ng/ml (0.000-0.120)
[2019-01-15 09:09] LABS: INR 0.86; PROTIME 11.8 Sec (11.9-14.9); PT RATIO 0.9
[2019-01-15 09:10] LABS: PARTIAL THROMBOPLASTIN TIME 31.5 Sec (23.0-35.0)
[2019-01-15] MEDS ORDERED: ONDANSETRON 4 MG INJ IV ×2 (09:30→12:00)
[2019-01-15] MEDS ORDERED: ACETAMINOPHEN 325 MG TAB PO ×2 (09:30→12:00)
[2019-01-15] MEDS: DILTIAZEM-D5W 125MG/125ML DRIP 125 ML IV ×2 (09:55→13:05)
[2019-01-15] MEDS: SOD CHLORIDE 0.9% 1,000 ML IV (10:07)
[2019-01-15] MEDS ORDERED: LORAZEPAM 2 MG INJ IV (12:00)
[2019-01-15] MEDS ORDERED: MAGNESIUM HYDROXIDE 30ML CUP PO (12:00)
[2019-01-15] MEDS ORDERED: DILTIAZEM-D5W 125MG/125ML DRIP 125 ML IV (12:00)
[2019-01-15] MEDS ORDERED: HYDROCODONE/APAP (5/325) TAB PO (12:00)
[2019-01-15] MEDS ORDERED: DOCUSATE SODIUM 100 MG CAP PO (12:00)
[2019-01-15] MEDS ORDERED: NACL 0.9% 3 ML SYG IV (12:00)
[2019-01-15] MEDS ORDERED: hydrALAzine 20 MG INJ IV (12:00)
[2019-01-15] MEDS ORDERED: morphine 2 MG INJ IV (12:00)
[2019-01-15] MEDS: SOD CHLORIDE 0.45% 1,000 ML IV ×2 (13:05→20:10)
[2019-01-15 14:03] LABS: FREE T4 (FREE THYROXINE) 1.19 ng/dl (0.78-2.44)
[2019-01-15 15:00] LABS: TROPONIN-I 0.013 ng/ml (0.000-0.120)
[2019-01-15] MEDS: ALBUTEROL/IPRATROPIUM (NEB) 3 ML AMP HHN (15:24)
[2019-01-15] MEDS: DILTIAZEM 60 MG TAB PO (17:51)
[2019-01-15] MEDS: APIXABAN 5 MG TABLET PO (20:27)
[2019-01-15] MEDS: FLECAINIDE 50 MG TAB PO (20:28)
[2019-01-15 20:48] LABS: TROPONIN-I < 0.012 ng/ml (0.000-0.120)
[2019-01-16] MEDS: SOD CHLORIDE 0.45% 1,000 ML IV ×2 (01:20→14:33)
[2019-01-16] MEDS: DILTIAZEM 60 MG TAB PO ×5 (06:00→23:12)
[2019-01-16 06:21] LABS: ADD MAN DIFF? NO
[2019-01-16 06:25] LABS: BASOPHILS % 0.4 % (0.0-2.0); EOSINOPHILS # 0.1 10^3/ul (0.0-0.5); EOSINOPHILS % 1.2 % (0.0-7.0); HEMATOCRIT 48.5 % (37.0-47.0); HEMOGLOBIN 15.6 g/dl (12.0-16.0); LYMPHOCYTES # 2.5 10^3/ul (0.8-2.9); LYMPHOCYTES % 36.5 % (15.0-51.0); MEAN CORPUSCULAR HEMOGLOBIN 28.8 pg (29.0-33.0); MEAN CORPUSCULAR HGB CONC 32.2 g/dl (32.0-37.0); MEAN CORPUSCULAR VOLUME 89.5 fl (82.0-101.0); MEAN PLATELET VOLUME 11.1 fl (7.4-10.4); MONOCYTE # 0.4 10^3/ul (0.3-0.9); MONOCYTES % 5.1 % (0.0-11.0); NEUTROPHIL # 3.9 10^3/ul (1.6-7.5); NEUTROPHILS % 56.7 % (39.0-77.0); PLATELET COUNT 219 10^3/UL (140-415); RED BLOOD COUNT 5.42 10^6/ul (4.20-5.40); RED CELL DISTRIBUTION WIDTH 13.5 % (11.5-14.5)
[2019-01-16 06:25] LABS: WHITE BLOOD COUNT 6.9 10^3/ul (4.8-10.8)
[2019-01-16 07:13] LABS: HEMOGLOBIN A1C 5.9 % (0-5.9)
[2019-01-16 07:45] LABS: ANION GAP 10 (5-13); BLOOD UREA NITROGEN 14 mg/dl (7-20); CALCIUM 10.7 mg/dl (8.4-10.2); CARBON DIOXIDE 23 mmol/L (21-31); CHLORIDE 108 mmol/L (97-110); CHOL/HDL RATIO 2.9 RATIO; CHOLESTEROL 208 mg/dl (100-200); CREATININE 0.62 mg/dl (0.44-1.00); GLUCOSE 108 mg/dl (70-220); HDL CHOLESTEROL 70 mg/dl (33-92); LDL CHOLESTEROL,CALCULATED 121 mg/dl; PHOSPHORUS 3.7 mg/dl (2.5-4.9); POTASSIUM 4.5 mmol/L (3.5-5.1); SODIUM 141 mmol/L (135-144); TRIGLYCERIDES 86 mg/dl (0-149)
[2019-01-16] MEDS: APIXABAN 5 MG TABLET PO ×2 (08:14→21:16)
[2019-01-16] MEDS: FLECAINIDE 50 MG TAB PO ×2 (08:14→21:16)
[2019-01-17] MEDS: APIXABAN 5 MG TABLET PO (10:20)
[2019-01-17] MEDS: FLECAINIDE 50 MG TAB PO (10:20)
[2019-01-17] MEDS: DILTIAZEM 60 MG TAB PO ×2 (10:20→12:00)
[2019-01-17 11:23] LABS: ADD MAN DIFF? NO
[2019-01-17 11:25] LABS: BASOPHILS % 0.6 % (0.0-2.0); EOSINOPHILS # 0.1 10^3/ul (0.0-0.5); EOSINOPHILS % 1.2 % (0.0-7.0); HEMATOCRIT 45.3 % (37.0-47.0); HEMOGLOBIN 14.9 g/dl (12.0-16.0); LYMPHOCYTES # 1.9 10^3/ul (0.8-2.9); LYMPHOCYTES % 28.5 % (15.0-51.0); MEAN CORPUSCULAR HEMOGLOBIN 29.1 pg (29.0-33.0); MEAN CORPUSCULAR HGB CONC 32.9 g/dl (32.0-37.0); MEAN CORPUSCULAR VOLUME 88.5 fl (82.0-101.0); MEAN PLATELET VOLUME 9.7 fl (7.4-10.4); MONOCYTE # 0.5 10^3/ul (0.3-0.9); MONOCYTES % 6.8 % (0.0-11.0); NEUTROPHIL # 4.1 10^3/ul (1.6-7.5); NEUTROPHILS % 62.6 % (39.0-77.0); PLATELET COUNT 314 10^3/UL (140-415); RED BLOOD COUNT 5.12 10^6/ul (4.20-5.40); RED CELL DISTRIBUTION WIDTH 12.9 % (11.5-14.5)
[2019-01-17 11:25] LABS: WHITE BLOOD COUNT 6.6 10^3/ul (4.8-10.8)
[2019-01-17 12:04] LABS: ANION GAP 8 (5-13); BLOOD UREA NITROGEN 20 mg/dl (7-20); CALCIUM 10.7 mg/dl (8.4-10.2); CARBON DIOXIDE 24 mmol/L (21-31); CHLORIDE 106 mmol/L (97-110); CREATININE 0.68 mg/dl (0.44-1.00); GLUCOSE 86 mg/dl (70-220); POTASSIUM 4.2 mmol/L (3.5-5.1); SODIUM 138 mmol/L (135-144)
== END 2019-01-17 14:15 | disposition home or self-care (01) | DRG 310 ==
LOC: E/R 07:15 → 6WM 09:06
DX: I48.2 Chronic atrial fibrillation (principal); F32.9 Major depressive disorder, single episode, unspecified; D35.1 Benign neoplasm of parathyroid gland; Z79.02 Long term (current) use of antithrombotics/antiplatelets; Z87.891 Personal history of nicotine dependence; F41.9 Anxiety disorder, unspecified
CPT/HCPCS: 36415; 71045; 80048; 80053; 80061; 82550; 82553; 83036; 83735; 83880; 84100; 84439; 84443; 84484; 85025; 85610; 85730; 93005; 94640; 96374; 97161; 99291-25

== ENCOUNTER 2019-01-21 12:48 | Emergency (ER) | payer MEDICARE, OTHER ==
[2019-01-21] MEDS: SOD CHLORIDE 0.9% 500 ML IV (13:25)
[2019-01-21] MEDS: ONDANSETRON 4 MG INJ IV (13:25)
[2019-01-21 13:26] LABS: ADD MAN DIFF? NO
[2019-01-21 13:32] LABS: BASOPHILS % 0.4 % (0.0-2.0); EOSINOPHILS # 0.1 10^3/ul (0.0-0.5); EOSINOPHILS % 0.9 % (0.0-7.0); HEMATOCRIT 47.8 % (37.0-47.0); HEMOGLOBIN 15.6 g/dl (12.0-16.0); LYMPHOCYTES # 1.5 10^3/ul (0.8-2.9); LYMPHOCYTES % 19.5 % (15.0-51.0); MEAN CORPUSCULAR HEMOGLOBIN 28.7 pg (29.0-33.0); MEAN CORPUSCULAR HGB CONC 32.6 g/dl (32.0-37.0); MEAN PLATELET VOLUME 9.7 fl (7.4-10.4); MONOCYTE # 0.4 10^3/ul (0.3-0.9); MONOCYTES % 5.6 % (0.0-11.0); NEUTROPHIL # 5.8 10^3/ul (1.6-7.5); NEUTROPHILS % 73.5 % (39.0-77.0); PLATELET COUNT 328 10^3/UL (140-415); RED BLOOD COUNT 5.43 10^6/ul (4.20-5.40); RED CELL DISTRIBUTION WIDTH 13.2 % (11.5-14.5)
[2019-01-21 13:32] LABS: WHITE BLOOD COUNT 7.9 10^3/ul (4.8-10.8)
[2019-01-21 14:00] LABS: ALANINE AMINOTRANSFERASE 28 IU/L (13-69); ALBUMIN 4.4 g/dl (3.3-4.9); ALBUMIN/GLOBULIN RATIO 1.33; ALKALINE PHOSPHATASE 124 IU/L (42-121); ANION GAP 14 (5-13); ASPARTATE AMINO TRANSFERASE 23 IU/L (15-46); BILIRUBIN,INDIRECT 0.2 mg/dl (0-1.1); BILIRUBIN,TOTAL 0.2 mg/dl (0.2-1.3); BLOOD UREA NITROGEN 21 mg/dl (7-20); CALCIUM 10.7 mg/dl (8.4-10.2); CARBON DIOXIDE 25 mmol/L (21-31); CHLORIDE 101 mmol/L (97-110); CREATININE 0.77 mg/dl (0.44-1.00); GLUCOSE 105 mg/dl (70-220); LIPASE 35 U/L (23-300); POTASSIUM 4.1 mmol/L (3.5-5.1); SODIUM 140 mmol/L (135-144); TOTAL PROTEIN 7.7 g/dl (6.1-8.1)
[2019-01-21 14:11] LABS: TROPONIN-I < 0.012 ng/ml (0.000-0.120)
== END 2019-01-21 15:30 | disposition home or self-care (01) ==
LOC: E/R 15:30
DX: I10 Essential (primary) hypertension (principal); R53.1 Weakness; R11.0 Nausea; F17.210 Nicotine dependence, cigarettes, uncomplicated
CPT/HCPCS: 36415; 71045; 80053; 83690; 84484; 85025; 93005; 99285-25